=== PATIENT | male | born 1990 | race Caucasian/White ===

== ENCOUNTER 2023-12-07 05:15 | Emergency (ER) | payer MEDICAID ==
[~2023-12-07] VITALS: Ht 172.7 cm; Wt 86.0 kg
[2023-12-07 05:22] VITALS: O2SAT 99
[2023-12-07] MEDS: TETANUS, DIPHTHERIA, PERTUSSIS VAC/PF 0.5ML (>10YR OLD) IM ONE (05:30)
[2023-12-07] MEDS ORDERED: IBUPROFEN 600MG TABLET PO ONE (05:30)
[2023-12-07] MEDS: IBUPROFEN 600MG TABLET PO NR (06:30)
[2023-12-07 06:45] VITALS: BP 148/79; PULSE 86; RESP 19; TEMP 36.78072; O2SAT 100
== END 2023-12-07 07:20 ==
LOC: ER 05:15
DX: S82.002A Unspecified fracture of left patella, initial encounter for closed fracture (principal); Y30.XXXA Falling, jumping or pushed from a high place, undetermined intent, initial encounter; Y93.89 Activity, other specified; Y92.89 Other specified places as the place of occurrence of the external cause; Y99.8 Other external cause status
CPT/HCPCS: 29505; 73562; 99283